=== PATIENT | male | born 1985 | race Caucasian/White ===

== ENCOUNTER 2016-06-04 10:57 | Emergency (ER) | payer OTHER ==
[~2016-06-04] VITALS: Ht 177.8 cm; Wt 97.5 kg
[~2016-06-04 10:57] MED LIST: EPP3 IM
[2016-06-04 11:00] VITALS: TEMP 36.9; Ht 177.8 cm; Wt 97.5 kg
[2016-06-04] MEDS ORDERED: MoRPHine SULFATE 4 MG/ML 1 ML CARP\\VIAL IV STA (11:26)
[2016-06-04] MEDS ORDERED: ONDANSETRON INJ 2 MG/ML 2 ML VIAL IV STA (11:26)
[2016-06-04] MEDS ORDERED: SODIUM CHLORIDE 0.9% 500ML 500 ML IV ONE (11:30)
--- NOTE | 2016-06-04 11:30 | DIAGNOSTIC IMAGING REPORT ---
LEFT SHOULDER 2 VIEWS HISTORY: Left shoulder pain. fall COMPARISON: None. FINDINGS: Left anterior shoulder dislocation. Nondisplaced Hill-Sachs impaction fracture and nondisplaced Bankart fracture at the glenoid rim. Soft tissue swelling. The left clavicle is intact. No radiopaque foreign bodies. IMPRESSION: Left anterior shoulder dislocation with nondisplaced Hill-Sachs impaction fractures and Bankart lesion. Electronically signed by: Mal Laura M.D. 06/04/2016 11:29 AM Dictated Date/Time: 06/04/2016 11:28 AM
--- NOTE | 2016-06-04 12:16 | DIAGNOSTIC IMAGING REPORT ---
LEFT SHOULDER MIN 2 VIEWS ROUTINE CLINICAL HISTORY: post reduction COMPARISON STUDY: Left shoulder 06/04/2016. FINDINGS: Status post reduction of the left shoulder dislocation. The alignment is anatomic. Small nondisplaced Hill-Sachs impaction fracture. No definite Bankart lesion identified. IMPRESSION: Status post reduction of the left shoulder dislocation with anatomic alignment. Small Hill-Sachs impaction fracture. Electronically signed by: Mal Laura M.D. 06/04/2016 12:15 PM Dictated Date/Time: 06/04/2016 12:14 PM
[2016-06-04] MEDS ORDERED: HYDR-5688 PO (12:27)
[2016-06-04 12:45] VITALS: BP 130/88; PULSE 72; O2SAT 99
--- NOTE | 2016-06-04 22:56 | EMERGENCY ROOM VISIT NOTE ---
ED Visit Note First contact with patient: 11:03 Chief Complaint: Left shoulder pain. History of Present Illness: Mr. Vernon is a 30-year-old white male who ambulates into the ED complaining of posterior Lesh shoulder pain per Patient reports less than an hour ago he was playing softball when he fell onto his left shoulder in an attempt to catch the ball. Immediately after the fall he started experiencing pain over the posterior aspect of the shoulder. Since that time his pain has been constant. He is not able to describe his discomfort he rates his discomfort 8/10. The pain is nonradiating. The pain worsens with all movement of the shoulder. He has not identified any alleviating factors related to the pain. He has not taken a medication for pain prior to arrival at the hospital. He denies at the time of the injury striking his head or having a loss of consciousness, and cervical and thoracic back pain, chest pain, shortness of breath, arm weakness/numbness/tingling. Additionally he denies any previous significant injuries or surgeries to the shoulder. Review of Systems: As noted above in history of present illness. Past Medical History: Patient denies. Current Medications: Patient denies. Allergies to Medications: Penicillin. Social History: Patient is currently employed; he feels safe in his home environment; he admits to tobacco and alcohol use. Physical Examination: Vital Signs: Date Time Temp Pulse Resp B/P Pulse Ox O2 Delivery O2 Flow Rate FiO2 06/04/16 12:45 72 16 130/88 99 06/04/16 11:00 36.9 80 20 145/107 98 Room Air GENERAL: 30-year-old male in moderate distress due to pain, nontoxic-appearing, afebrile and hemodynamically stable. NEUROLOGICAL: Awake, alert and oriented to person, place and time. Answering questions appropriately and following commands. Normal gait. No focal motor sensory deficits. SKIN: Warm, sweaty and pink. No soft tissue trauma noted. HEENT: Atraumatic and normocephalic. No facial trauma. PERRLA. Airway patent. Speech normal and clear. Trachea midline. No jugular venous distention. BACK: No tenderness over the bony cervical and thoracic spine. Full range of motion of the cervical spine. THORAX: Lungs sounds are clear to auscultation and equal bilaterally with symmetrical chest wall. No crepitus, tenderness, subcutaneous air or deformities noted. LEFT UPPER EXTREMITY: Moderate deformity at the glenohumeral joint showing the position of the humeral head inferiorly and anteriorly to the joint. No palpable bony crepitus. There is mild swelling in this area. I appreciate no tenderness over the clavicle, acromioclavicular joint or scapula. With the shoulder stabilize the did have flexion and extension of the elbow, pronation and supination of forearm and all movements at the wrist. Distal pulses were intact. He was able to distinguish light sensations through all dermatomes of the hand. Post reduction patient was still able to flex and extend his elbow, pronate supinate his forearm and do all movements at the wrist. He continued to be neurovascularly intact in his hand and fingers. ED Course: Patient is assessed as noted above. Left Shoulder X-Rays: Was read by myself and the radiologist showing a anterior shoulder dislocation with a nondisplaced Hill-Sachs impaction fracture and nondisplaced Bankart fracture at the glenoid rim. An IV lock was initiated and patient received 4 mg of morphine IV for pain and 4 mg of Zofran IV. With the assistance of Dr. Dent I was able to easily reduce the shoulder with a modified Makenna technique. Left Shoulder X-Rays: Was reviewed by myself and read by the radiologist and shows proper anatomical position post reduction. Patient was placed in a shoulder immobilizer. Patient was educated about tonight's findings and instructed on his treatment plan; he verbalizes understanding and agreement with this plan. Clinical Impression: Left anterior shoulder dislocation. Disposition: Patient discharged home in stable condition; prior to discharge she was reassessed and subjectively reported he was feeling much better and rated his discomfort 4/10. Plan: Comfort measures were discussed with the patient including a sliding pain medication scale including narcotics; appropriate narcotic precautions were discussed with the patient. 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 Patient was encouraged return ED for worsening/uncontrolled pain, arm weakness/ numbness/tingling or any new/concerning symptoms.
== END 2016-06-04 12:48 | disposition home or self-care (01) ==
LOC: C.EDB 10:58 → C.EDD 12:48
DX: S43.005A Unspecified dislocation of left shoulder joint, initial encounter (principal); W18.39XA Other fall on same level, initial encounter; Y93.64 Activity, baseball; Y99.8 Other external cause status; Z72.0 Tobacco use